=== PATIENT | male | born 1950 ===

== ENCOUNTER 2024-09-19 06:55 | Day surgery (SDC) | payer MEDICARE ==
[~2024-09-19] VITALS: Ht 180.3 cm; Wt 72.1 kg
[~2024-09-19 06:55] MED LIST: Balanced Salt Epinephrine Irrigation Solution 500 mL IR SCH; Diazepam 5 MG Tab PO PRN; Diazepam 5 MG Tab PO SCH; Lidocaine HCl/Pf 1% 5 ML VIAL ONE; Lidocaine HCl/Pf 1% 5 ML VIAL XX SCH; Moxifloxacin HCL 0.5 MG/0.1 ML 0.4MLSYR RIGHTEYE SCH; Ondansetron 4 MG SoluTab MM PRN; PHENYLEPHRINE\\TROPICAMIDE\\TETRACAINE OPHTHALMIC DILATING SOLN RIGHTEYE PRN; Povidone-Iodine 450 DROP/30 ML Solution ONE; Povidone-Iodine 450 DROP/30 ML Solution RIGHTEYE SCH; Tetracaine HCl/Pf 0.5% Opth Soln 4 ml ONE
[2024-09-19] MEDS ORDERED: Diazepam 10 MG Tab ONE (07:28)
--- NOTE | 2024-09-19 07:51 | NUR ---
09/19/24 0751 Kyle Sosa TETRACAINE ADMINISTERED AT 0743, PLEDGET PLACED AT 0745. VALIUM ADMINISTERED AT 0738.
--- NOTE | 2024-09-19 08:25 | NUR ---
09/19/24 0825 Catia Moffett BP-143/72 P-62 SP02-99
== END 2024-09-19 09:01 | disposition home or self-care (01) ==
LOC: ORSCSDS 06:55
PROVIDERS: Student in an Organized Health Care Education/Training Program
PROC: 08RJ3JZ Replacement of Right Lens with Synthetic Substitute, Percutaneous Approach (ICD-10-PCS; principal; 2024-09-19 08:30)
DX: H25.13 Age-related nuclear cataract, bilateral (principal); H52.201 Unspecified astigmatism, right eye; H21.81 Floppy iris syndrome; Z87.891 Personal history of nicotine dependence
CPT/HCPCS: A9270; J2003; V2632

== ENCOUNTER 2024-09-26 07:28 | Day surgery (SDC) | payer MEDICARE ==
[~2024-09-26] VITALS: Ht 180.3 cm; Wt 71.1 kg
[~2024-09-26 07:28] MED LIST changes: -Lidocaine HCl/Pf 1% 5 ML VIAL ONE; +Moxifloxacin HCL 0.5 MG/0.1 ML 0.4MLSYR LEFTEYE SCH; -Moxifloxacin HCL 0.5 MG/0.1 ML 0.4MLSYR RIGHTEYE SCH; +PHENYLEPHRINE\\TROPICAMIDE\\TETRACAINE OPHTHALMIC DILATING SOLN LEFTEYE PRN; -PHENYLEPHRINE\\TROPICAMIDE\\TETRACAINE OPHTHALMIC DILATING SOLN RIGHTEYE PRN; +Povidone-Iodine 450 DROP/30 ML Solution LEFTEYE SCH; -Povidone-Iodine 450 DROP/30 ML Solution RIGHTEYE SCH
[2024-09-26] MEDS ORDERED: Diazepam 10 MG Tab ONE (07:41)
--- NOTE | 2024-09-26 08:14 | NUR ---
09/26/24 0814 Griffith, Dorie VALIUM 10MG PO X1 GIVEN AT 0813 PER MD ORDERS. PT REPORTS NO ANXIETY AND RATES ANXIETY LEVEL AT 0/10.
--- NOTE | 2024-09-26 09:06 | NUR ---
09/26/24 0906 Catia Moffett BP-118/80 P-56 SP02-98% W/BB O2
== END 2024-09-26 09:38 | disposition home or self-care (01) ==
LOC: ORSCSDS 07:28
PROVIDERS: Student in an Organized Health Care Education/Training Program
PROC: 08RK3JZ Replacement of Left Lens with Synthetic Substitute, Percutaneous Approach (ICD-10-PCS; principal; 2024-09-26 09:00)
DX: H25.812 Combined forms of age-related cataract, left eye (principal); Z96.1 Presence of intraocular lens; H21.81 Floppy iris syndrome; F17.210 Nicotine dependence, cigarettes, uncomplicated
CPT/HCPCS: A9270; V2632